=== PATIENT | male | born 2005 | race Caucasian/White ===

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

== ENCOUNTER → 2024-04-18 | Outpatient (REF) | payer OTHER ==
[2024-04-19 11:23] LABS: Trichomonas vaginalis (AMP) NOT DETECTED (NEGATIVE)
[2024-04-19 11:46] LABS: GC DNA AMPLIFICATION NEGATIVE (NEGATIVE)
== END ==
LOC: M LAB REF 08:49
PROVIDERS: ATTEND Family Medicine
DX: R30.0 Dysuria (principal); Z11.3 Encounter for screening for infections with a predominantly sexual mode of transmission